=== PATIENT | male | born 2000 | race Two or more races ===

== ENCOUNTER 2025-03-28 20:26 | Emergency (ER) | payer MEDICAID, SELFPAY ==
--- NOTE | 2025-03-28 21:27 | PC.NURSE ---
no answer when called for vitals at 2125
--- NOTE | 2025-03-28 21:41 | PC.NURSE ---
NO ANSWER AT ER LOBBY OR OUTSIDE ER TO BE V/S.
== END 2025-03-28 21:42 | disposition left against medical advice (07) ==
LOC: SERX 21:48
PROVIDERS: Emergency Provider Emergency Medicine
DX: Z53.21 Procedure and treatment not carried out due to patient leaving prior to being seen by health care provider (principal)
CPT/HCPCS: 99282

== ENCOUNTER 2025-03-29 06:27 | Emergency (ER) | payer MEDICAID, SELFPAY ==
[2025-03-29 06:37] VITALS: BP 143/87; PULSE 74; RESP 16; TEMP 36.7; O2SAT 96
--- NOTE | 2025-03-29 06:41 | PD.EDDENTL ---
ED Dental RME/HPI General Chief complaint: Dental/Oral/Throat Stated complaint: SORE THROAT Time Seen by Provider: 03/29/25 06:36 Arrival date/time: 03/29/25 06:27 24-year-old male with no significant medical problems presents to the emergency department today for complaints of sore throat ongoing x 3 days patient reports pain with swallowing and erythema Limitations: no limitations Related Data Previous Rx's ?Medication ?Instructions ?Recorded amoxicillin 875 mg-potassium 1 tab PO BID 7 days #14 tabs 03/29/25 clavulanate 125 mg tablet ibuprofen 600 mg tablet 600 mg PO Q6H #30 tabs 03/29/25 prednisone 10 mg tablet 30 mg (3 x 10 mg) PO BID 3 days 03/29/25 #18 tabs Allergies Allergy/AdvReac Type Severity Reaction Status Date / Time No Known Allergies Allergy Verified 03/29/25 06:28 Review of Systems Review of Systems Systems Reviewed: All systems reviewed, normal except as documented Constitutional Constitutional: Reports system reviewed and no additional complaints, except as documented, Denies fever(s) and Denies headache(s) Eyes Eyes: Reports system reviewed and no additional complaints, except as documented and Denies blurry vision ENT Ears, Nose, Mouth, and Throat: Reports system reviewed and no additional complaints, except as documented, Denies headache(s), Denies nasal congestion, Denies nasal discharge, Reports sore throat and Reports throat swelling Cardiovascular Cardiovascular: Reports system reviewed and no additional complaints, except as documented, Denies chest pain and Denies dyspnea Respiratory Respiratory: Reports system reviewed and no additional complaints, except as documented, Denies chest congestion, Denies cough and Denies dyspnea Gastrointestinal Gastrointestinal: Reports system reviewed and no additional complaints, except as documented and Denies abdominal pain Integumentary/Breasts Skin/Breast: Reports system reviewed and no additional complaints, except as documented and Denies rash Neurologic Neurologic: Reports system reviewed and no additional complaints, except as documented, Reports as per HPI and Denies headache(s) Allergic/Immunologic Allergic/Immunologic: Reports throat swelling Past Medical History Social History SMOKING STATUS: Never smoker ED Exam General Limitations: Present no limitations General appearance: Present alert and in no apparent distress Head Head exam: Present atraumatic Eye Eye exam: Present normal appearance, PERRL and EOMI; Absent conjunctival injection ENT ENT exam: Present mucous membranes moist Expanded ENT Exam Mouth exam: Absent drooling, trismus, lip swelling, tongue normal or tongue elevation Neck Neck exam: Present normal inspection, full ROM and trachea midline Chest Chest inspection: Present normal inspection and symmetric chest wall rise Respiratory Respiratory exam: Present normal lung sounds bilaterally; Absent respiratory distress Cardiovascular Cardiovascular exam: Present regular rate, normal rhythm and normal heart sounds Abdominal Exam Abdominal exam: Present soft and normal bowel sounds Extremities Exam Extremities exam: Present normal inspection and full ROM Back Exam Back exam: Present normal inspection and full ROM Neurological Exam Neurological exam: Present alert, oriented X3 and CN II-XII intact Psychiatric Psychiatric exam: Present normal affect and normal mood Skin Skin exam: Present warm, dry, intact and normal color Course Quality Measures none Vital Signs Vital signs: Vital Signs Temperature 98.0 F 03/29/25 06:37 Pulse Rate 74 03/29/25 06:37 Respiratory Rate 16 03/29/25 06:37 Blood Pressure 143/87 H 03/29/25 06:37 Pulse Oximetry (%) 96 03/29/25 06:37 Oxygen Delivery Method Room Air 03/29/25 06:37 O2 saturation 96% room air with normal limits Dental / Oral MDM Narrative MDM Narrative:: 24-year-old male with no significant medical problems presents to the emergency department today for complaints of sore throat ongoing x 3 days patient reports pain with swallowing and erythema On exam patient has tonsillar erythema no trismus no hoarseness of voice no difficulty breathing No evidence of peritonsillar abscess patient does have evidence of infection Patient be treated symptomatically Patient discharged home in no distress to follow-up with primary care doctor in the next 24 to 48 hours and for any worsening symptoms to return to the ER immediately Patient data External records reviewed:: [facility] previous records Clinical information provided by:: patient Social determinants that could affect healthcare access:: none Patient has the following chronic illnesses:: None How is presenting disease/condition affected by chronic disease/condition?: no chronic disease Evaluation data The following diagnostics were reviewed and interpreted by me:: other (specify) Lab and/or radiology exams considered but not ordered:: Considered not indicated Interpretation Summary: N/A Medications / Prescriptions Medications or Prescriptions considered but not ordered:: Given Medication administrations:: Given Consultations Consultation(s) initiated? (list below): No Diagnosis Dental Differential Diagnosis: other Most likely diagnosis given after review of the tests above:: Pharyngitis Admission Indicated Admission indicated?: not indicated Admission Request Was there a request for admission?: No Disposition Plan Disposition Plan: Discharge Discharge Attestation Discharge Attestation: The patient and all family members were given an opportunity to ask questions and understood the discharge instructions. Discharge instructions specifically effects, indications for sooner follow up or return to the emergency department, and the expected course of current diagnosis. Patient condition: Stable Discharge Plan Plan Patient Disposition: HOME (Self Care) Discharge Disposition comment: stable Prescriptions/Referrals Prescriptions/Med Rec: New prednisone 10 mg tablet 30 mg PO BID 3 Days Qty: 18 0RF ibuprofen 600 mg tablet 600 mg PO Q6H Qty: 30 0RF amoxicillin-pot clavulanate 875-125 mg tablet 1 tab PO BID 7 Days Qty: 14 0RF Problem List Clinical Impression: Pharyngitis Patient/Caregiver Discharge Instructions Education Materials: ED Pharyngitis, Report Pending Additional Instructions: Please follow up with your primary care doctor in the next 24-48hrs for any worsening symptoms return here immediately Print Language: Turkmen Stand Alone Forms: Stacy Award Info., Work/School Release, Patient Portal Info Letter PA/SUBSTANCE ABUSE CLINICIAN Supervising Physician PA/SUBSTANCE ABUSE CLINICIAN Supervising Physician: Dr. Parish LE Attestation MD Attestation The patient was seen by the midlevel practitioner. I, the co-signing physician, was present during the entire ER visit. While I did not physically examine the patient, I was available for consultation as needed. I agree with the plan and documentation.
== END 2025-03-29 06:55 | disposition home or self-care (01) ==
LOC: SERX 07:12
PROVIDERS: Emergency Provider Family Medicine
DX: J02.9 Acute pharyngitis, unspecified (principal)
CPT/HCPCS: 99282